=== PATIENT | female | born 1960 | race Caucasian/White ===

== ENCOUNTER → 2017-02-15 | Outpatient (CLI) | payer BC ==
--- NOTE | ~2017-02-15 | MR21 ---
[facility] A Service of [facility] & [facility] RADIOLOGY TEXT RESULTS PATIENT: OLGA LIDIA MAZA LOCATION: [facility] : 58 UNIT #: [id number] AGE: [address]: James Henderson MD SEX: F ORDER DR: [id number] [address] [address] [id number] MR#: [id number] Acc #: [id number] NAME: OLGA LIDIA MAZA : 1960 SEX: F STUDY DATE/TIME: 02/15/2017 16:20 UNIT: [facility] ROOM: STUDY DESCRIPTION: MR Breast WWo Contrast Armando Attending Physician: James Henderson M.D. Referring Physician: James Henderson M.D. Ordering Physician: Radha Arriaga A.P.R.N. Primary Care Physician: Radha Arriaga A.P.R.N. MRI CENTER REPORT This report is preliminary unless electronic signature is present. EXAM Bilateral breast MR with and without contrast HISTORY Known right breast cancer with recent diagnosis. COMPARISON Mammogram with ultrasounds from January 2017. TECHNIQUE Sagittal Vibrant imaging and axial Vibrant imaging was performed as well as axial T1 weighted imaging. Then the patient was given 20 mL of MultiHance and multiphase axial followed by sagittal Vibrant imaging was performed. Subtractions were generated. The study was reviewed on a [employer] CAD system. 3D MIP images were generated. FINDINGS There are no chest wall or hepatic lesions visible. The left breast is devoid of any enhancement. The right breast has a irregular enhancing mass in the medial slightly upper breast that is at least 3 cm x 2.8 cm x 1.8 cm. More centrally and slightly more anteriorly in the breast is another irregular enhancing mass measuring 2.2 x 1.7 x 1.6 cm. Both these have been previously biopsied and have been shown to represent malignancy. There is a third separate mass less than a cm away from the more central lesion. This is on the medial side and it measures about 8 mm in size. There are 3 enhancing lymph nodes just lateral to the pectoralis muscle. These are all fairly close together and the largest one measures 16 mm in diameter. This I believe is the one that I performed a fine needle aspiration on earlier the same day. When the patient is supine for the ultrasound evaluation the lymph nodes are posterior to the pectoralis muscle but on this MRI they are lying lateral to the anteriorly displaced pectoralis muscle. [facility]. [facility] A Service of [facility] / [facility] RADIOLOGY TEXT RESULTS PATIENT: OLGA LIDIA MAZA LOCATION: [facility] : 58 UNIT #: [id number] AGE: [address]: James Henderson MD SEX: F ORDER DR: IMPRESSION 1. The left breast is negative. 2. The right breast shows 2 foci of previously biopsied malignancy with the larger one being in the medial slightly upper breast and that is about 3.0 x 2.8 x 1.8 cm. In the slightly more anterior but still central breast there is a 2.2 x 1.7 x 1.8 cm enhancing mass that was previously biopsied and along the medial side of this mass there is an 8 mm enhancing lesion that is very suspicious for additional site of malignancy. 3. There are 3 enhancing lymph nodes clustered together lateral to the anteriorly displaced pectoralis muscle and the largest one measures 16 mm in diameter and I believe this is one that I had performed the fine needle aspiration on earlier today. 4. No chest wall or hepatic lesions are identified. Patients over the age of 40 are entered into a reminder system with target due date for the next mammogram. A result letter will also be sent to the patient. BIRADS: 6. Known biopsy; proven malignancy. Dictated by... Marquis Navarro M.D. THIS IS AN ELECTRONICALLY VERIFIED REPORT Marquis Navarro M.D. at 02/16/2017 4:13 PM ALLISON/adolfo TD: 02/16/2017 13:56 JOB #: [id number] MRI CENTER REPORT Page 1 of 1
[2017-02-15 18:35] LABS: POC - CREATININE 0.84 mg/dL (0.44-1.03); POC - GFR >60.0 mL/min (>60)
== END | disposition home or self-care (01) ==
LOC: SMRI 15:08
PROVIDERS: Surgery
DX: C50.411 Malignant neoplasm of upper-outer quadrant of right female breast (principal); C50.211 Malignant neoplasm of upper-inner quadrant of right female breast
CPT/HCPCS: 0159T; 82565; A9581; C8908